=== PATIENT | female | born 1990 ===

== ENCOUNTER 2017-09-02 23:36 | Emergency (ER) | payer SELFPAY ==
[2017-09-02 23:53] VITALS: BP 154/112; PULSE 61; RESP 16; TEMP 97; O2SAT 99
--- NOTE | 2017-09-03 00:24 | ED PDOC ---
HPI: Back Time Seen by Provider: 09/02/17 23:48 Chief Complaint (Nursing): Back Pain Chief Complaint (Provider): neck pain History Per: Patient History/Exam Limitations: no limitations Onset/Duration Of Symptoms: Days (1) Current Symptoms Are (Timing): Still Present Exacerbating Factor(s): Turning, Movement Additional History Per: Patient Additional Complaint(s): 26 y/o female presents with right-sided neck pain x 1 day. Patient states she woke up with symptoms, which have gotten progressively worse through out the day. Pain worse with movement, little improvement with Tylenol. Denies headache, fever, numbness/weakness upper extremities. Past Medical History Reviewed: Historical Data, Nursing Documentation, Vital Signs Vital Signs: Last Vital Signs Temp 97 F L 09/02/17 23:45 Pulse 61 09/02/17 23:45 Resp 16 09/02/17 23:45 BP 154/112 H 09/02/17 23:45 Pulse Ox 99 09/02/17 23:45 - Medical History PMH: No Chronic Diseases - Surgical History Surgical History: No Surg Hx - Family History Family History: States: No Known Family Hx - Living Arrangements Living Arrangements: Alone - Home Medications Home Medications: Ambulatory Orders Medication Instructions Recorded Cyclobenzaprine [Cyclobenzaprine 10 mg PO BID PRN #14 tab 09/03/17 HCl] Naproxen [Naprosyn] 500 mg PO Q12 PRN #20 tablet 09/03/17 - Allergies Allergies/Adverse Reactions: Allergies Allergy/AdvReac Type Severity Reaction Status Date / Time No Known Allergies Allergy Verified 09/02/17 23:47 Review of Systems ROS Statement: Except As Marked, All Systems Reviewed And Found Negative Musculoskeletal: Positive for: Neck Pain Physical Exam - Reviewed Nursing Documentation Reviewed: Yes Vital Signs Reviewed: Yes - Physical Exam Appears: Positive for: Well, Non-toxic, Uncomfortable Head Exam: Positive for: ATRAUMATIC, NORMAL INSPECTION, NORMOCEPHALIC Skin: Positive for: Normal Color Eye Exam: Positive for: Normal appearance ENT: Positive for: Normal ENT Inspection Cardiovascular/Chest: Positive for: Regular Rate, Rhythm Respiratory: Positive for: Normal Breath Sounds Back: Positive for: Muscle Spasm (proximal right SCM tender to palpate. Right trapezius tender to palpate). Negative for: Vertebral Tenderness, Decreased ROM (head tilted to left due to pain right side of neck. Pain with right rotation, right lateral tilt, flexion/extension of neck) Neurologic/Psych: Positive for: Alert, Oriented. Negative for: Motor/Sensory Deficits - ECG O2 Sat by Pulse Oximetry: 99 - Progress ED Course And Treament: Toradol IM, flexeril PO On re-eval, patient resting comfortably; states pain improved. Patient educated on findings, discharged with rx Naproxen, flexeril. Advised follow up with primary doctor in 2-3 days. Ice/warm compresses. Return to ED for worsening/concerning symptoms. Disposition - Clinical Impression Clinical Impression: Muscle spasms of neck - Patient ED Disposition Is Patient to be Admitted: No Counseled Patient/Family Regarding: Diagnosis, Need For Followup, Rx Given - Disposition Disposition: Routine/Home Disposition Time: 01:53 Condition: IMPROVED Prescriptions: Cyclobenzaprine [Cyclobenzaprine HCl] 10 mg PO BID PRN #14 tab PRN Reason: Muscle Spasm Naproxen [Naprosyn] 500 mg PO Q12 PRN #20 tablet PRN Reason: Pain, Moderate (4-7) Instructions: Muscle Spasm (ED) Forms: [facility] ([place])
== END 2017-09-03 02:16 | disposition home or self-care (01) ==
LOC: H.ER 23:36
DX: M62.838 Other muscle spasm (principal)
CPT/HCPCS: 81025; 96372; 99282; J1885